=== PATIENT | male | born 1945 | race Caucasian/White ===

== ENCOUNTER 2020-02-19 16:19 | Emergency (ER) | payer MEDICARE, MEDICAID ==
[~2020-02-19] VITALS: Ht 134 cm; Wt 72.5 kg
[~2020-02-19 16:19] MED LIST: AC500T; DCS100C; LNS30CCR; LVT.088T
[2020-02-19] MEDS ORDERED: L.E.T. SOLUTION 3 ML SYR TOP ONE (17:00)
[2020-02-19] MEDS ORDERED: TETANUS,DIPTH,PERTUSS P/F (BOOSTRIX) 0.5 ML VIAL IM ONE (17:00)
--- NOTE | 2020-02-19 17:25 | ED Head Injury ---
General Chief Complaint: Laceration Stated Complaint: HEAD INJ/LACERATION Nursing Triage Note: PT ARRIVES TO ER WITH C/O HEAD LAC FROM A FALL AROUND 1500 TODAY. PT FELL IN BATHROOM AND HIT THE TUB. PT HAS A [employer] WORKER WITH HIM SHE WAS AT HIS HOUSE WHEN IT HAPPENED. SHE STATES NO LOSS OF CONSCIOUSNESS AND NOT SEEMING TO BE IN PAIN ACCORDING TO HER Source: patient Exam Limitations: no limitations History of Present Illness Date Seen by Provider: Feb 19, 2020 Time Seen by Provider: 17:22 Initial Comments To ER with a scalp laceration this gentleman is nonverbal from [facility]. He fell. No loss of consciousness. Occurred: just prior to arrival Severity: moderate Location: parietal Method of Injury: fell Loss of Consciousness: no loss of consciousness Allergies and Home Medications Allergies Coded Allergies: No Known Drug Allergies (Verified , 10/28/06) Patient Home Medication List Home Medication List Reviewed: Yes Review of Systems Review of Systems Constitutional: see HPI Eyes: No Symptoms Reported Ears, Nose, Mouth, Throat: no symptoms reported Respiratory: no symptoms reported Cardiovascular: no symptoms reported Genitourinary: no symptoms reported Musculoskeletal: no symptoms reported Skin: no symptoms reported Psychiatric/Neurological: No Symptoms Reported Endocrine: No Symptoms Reported Hematologic/Lymphatic: No Symptoms Reported Past Hzxhhey-Duqtkp-Gjowyk Hx Patient Social History Alcohol Use: Denies Use Recreational Drug Use: No 2nd Hand Smoke Exposure: No Recent Foreign Travel: No Contact w/Someone Who Travel: No Recent Infectious Disease Expo: No Recent Hopitalizations: No Immunizations Up To Date Tetanus Booster (TDap): Unknown PED Vaccines UTD: Yes Date of Pneumonia Vaccine: Dec 20, 2011 Date of Influenza Vaccine: Dec 19, 2018 Past Medical History Surgeries: No Respiratory: No Cardiac: No Neurological: No Reproductive Disorders: No Gastrointestinal: Yes Musculoskeletal: Yes (ABD HERNIA AT WAIST LINE (CAUSING NO CURRENT PROBLEMS)) Endocrine: Yes Psychosocial: No Integumentary: No Blood Disorders: No Physical Exam Vital Signs Vital Signs - First Documented 02/19/20 16:26 Temp 36.9 Pulse 110 B/P (MAP) 136/81 (99) Pulse Ox 96 O2 Delivery Room Air Capillary Refill : Less Than 3 Seconds Height, Weight, BMI Height: '" Weight: lbs. oz. kg; 40.00 BMI Method: General Appearance: WD/WN, no apparent distress HEENT: other (2 cm laceration to the left side of the parietal scalp depth to subcutaneous tissue.) Neck: non-tender, full range of motion Respiratory: no respiratory distress, no accessory muscle use Gastrointestinal: normal bowel sounds, non tender Extremities: normal range of motion, non-tender Psychiatric: alert, oriented x 3 Crainal Nerves: normal hearing, normal speech, PERRL Skin: normal color, warm/dry Progress/Results/Core Measures Results/Orders My Orders Orders - NORBERTO ACUNA APRN Ct Head/Cervical Spine Wo (02/19/20 17:00) Dipht,Pertuss(Acell),Tet Adult (Boostrix (02/19/20 17:00) Let Solution (Let Solution) (02/19/20 17:00) Medications Given in ED Current Medications Medications Dose Ordered Sig/Kalani Route Start Time Stop Time Status Last Admin Dose Admin Diphtheria/ Tetanus/Acell Pertussis 0.5 ml ONCE ONCE IM 02/19/20 17:00 02/19/20 17:01 DC 02/19/20 17:10 0.5 ML Tetracaine/ Epinephrine/ Lidocaine 3 ml ONCE ONCE TOP 02/19/20 17:00 02/19/20 17:01 DC 02/19/20 17:06 3 ML Vital Signs/I&O 02/19/20 16:26 Temp 36.9 Pulse 110 B/P (MAP) 136/81 (99) Pulse Ox 96 O2 Delivery Room Air Blood Pressure Mean: 99 Departure Impression Primary Impression: Scalp laceration Disposition: 01 HOME, SELF-CARE Condition: Stable Departure-Patient Inst. Decision time for Depature: 17:26 Referrals: RICARDO SÁNCHEZ DO (PCP/Family) Primary Care Physician Patient Instructions: Laceration Repair With [place] (DC) Add. Discharge Instructions: 1. He can shower letting water run over this starting tonight. Return to ER for any concerns such as vomiting severe headache or anything else that concerns you. Follow-up with his doctor next week. The barbara should be removed in about 5 to 6 days. You can return to the emergency room to have this done. All discharge instructions reviewed with patient and/or family. Voiced understanding. NORBERTO ACUNA APRN Feb 19, 2020 17:25
--- NOTE | 2020-02-19 19:28 | Diagnostic Imaging Report ---
EXAMINATION: CT head and CT cervical spine without contrast. TECHNIQUE: Multiple contiguous axial images were obtained through the brain and cervical spine without the use of intravenous contrast. Sagittal and coronal reformations through the cervical spine were then performed. All CT scans use one or more of the following dose optimizing techniques: automated exposure control, MA and/or KvP adjustment based on a patient size and exam type, or iterative reconstruction. HISTORY: Fall onto head with pain. COMPARISON: None available. FINDINGS: HEAD: Mild diffuse cerebral volume loss with proportional enlargement of the ventricles and sulci. Mild hypodensities throughout the supratentorial white matter of both cerebral hemispheres. 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 No acute intracranial hemorrhage or abnormal extra-axial fluid collections are present. No hyperdense vessel. Soft tissue swelling overlying the left superior scalp. The calvarium is intact. The mastoid air cells are clear. The visualized paranasal sinuses are clear. The orbits are normal. C-SPINE: Vertebral body height and alignment are preserved. Multilevel cervical spondylosis. No acute fracture, dislocation, or destructive osseous process. Multilevel facet hypertrophy. No greater than mild central canal or neuroforaminal stenosis at any level. The paraspinous soft tissues are normal. The visualized thyroid gland is normal. The visualized lung apices are normal. IMPRESSION: 1. No acute intracranial abnormality. 2. Degenerative changes of the cervical spine without acute osseous abnormality. 3. Chronic senescent changes. Dictated by: Dictated on workstation # [id number]
[2020-02-19 19:30] VITALS: BP 136/81
== END 2020-02-19 19:32 | disposition home or self-care (01) ==
LOC: EDUNIT# 16:19 → ER 16:21
DX: S01.01XA Laceration without foreign body of scalp, initial encounter (principal); Z23 Encounter for immunization; W19.XXXA Unspecified fall, initial encounter
CPT/HCPCS: 70450; 72125; 90715

== ENCOUNTER 2021-06-25 05:44 | Outpatient (CLI) | payer MEDICARE, MEDICAID ==
[~2021-06-25] VITALS: Ht 160 cm; Wt 70.0 kg
[2021-06-26] MEDS ORDERED: LEVO100C4 PO (09:59)
[2021-06-26] MEDS ORDERED: DOCU-143 PO (09:59)
[2021-06-26] MEDS ORDERED: POLY119P5 PO (09:59)
== END 2021-06-26 10:15 | disposition home or self-care (01) ==
LOC: PREOP 05:44
PROVIDERS: ATTEND Surgery
DX: Z01.818 Encounter for other preprocedural examination (principal)

== ENCOUNTER 2021-07-02 06:21 | Day surgery (SDC) | payer MEDICARE, MEDICAID ==
[~2021-07-02] VITALS: Ht 160 cm; Wt 70.0 kg
[2021-07-02] VITALS (7 sets, daily range): BP systolic 116–149; BP diastolic 64–85
[~2021-07-02 06:21] MED LIST changes: +DOCU-143 PO; +LEVO100C4 PO; +POLY119P5 PO
[2021-07-02] MEDS ORDERED: LACTATED RINGERS 1,000 ML IV PRN (06:30)
[2021-07-02] MEDS ORDERED: ceFAZolin INJECTION 1,000 MG VIAL IV ONE (06:30)
[2021-07-02] MEDS ORDERED: LIDOCAINE/EPI 2% 1:100,00 (XYLOCAINE) 20 ML VIAL ONE (07:02)
[2021-07-02] MEDS ORDERED: ONDANSETRON 4 MG/2 ML (SDV) Z0FRAN ONE (07:20)
[2021-07-02] MEDS ORDERED: proPOfol 200 MG/20 ML (DIPRIVAN) VIAL IV ONE (07:20)
[2021-07-02] MEDS ORDERED: fentaNYL INJ 100 MCG/2 ML AMP ONE (07:20)
[2021-07-02] MEDS ORDERED: LIDOCAINE PF 2% 5 ML (XYLOCAINE) VIAL ONE (07:20)
--- NOTE | 2021-07-02 07:54 | Progress Note-Pre Operative ---
Pre-Operative Progress Note H&P Reviewed The H&P was reviewed, patient examined and no changes noted. Date Seen by Provider: Jul 02, 2021 Time Seen by Provider: 07:46 Date H&P Reviewed: Jul 02, 2021 Time H&P Reviewed: 07:46 Pre-Operative Diagnosis: lesion right foot LISBETH BANUELOS DO Jul 02, 2021 07:54
[2021-07-02] MEDS ORDERED: SEVOFLURANE (ULTANE) 15 ML INHAL SOLN ONE (08:29)
--- NOTE | 2021-07-02 08:47 | Discharge Inst-Simple/Standard ---
Discharge Inst-Standard Patient Instructions/Follow Up Plan of Care/Instructions/FU: 12-14 days For suture removal Activity as Tolerated: Yes Discharge Diet: Regular Diet Other Inst to Patient Follow up Appt: Make appointment for 12-14 days for suture removal. Instructions: No lifting greater than 10 pounds. No strenuous activity. May shower in 24 hours, no tub bath or soaking. Use incentive spirometer at home as directed. No Smoking Skin/Wound Care: Keep area clean and dry. Change bandaid daily and as needed. Symptoms to Report: Appetite Changes, Extremity Discoloration, Numbness/Tingling, Swelling Increased, Bleeding Excessive, Eyesight Changes, Pain Increased, Urine Color Change, Constipation(Persistent), Fever over 101 degree F, Pain/Pressure in chest, Urinating Difficulty, Cough Up/Vomit Blood, Heart Beat Irreg/Pounding, Pain/Pressure in jaw, Vaginal Bleeding Increase, Cramps in feet or legs, Lightheadedness, Pain/Pressure in shoulder, Diarrhea(Persistent), Memory Changes Suddenly, Questions/Concerns, Weight gain consecutive days, Dizziness/Fainting, Nausea/Vomiting, Shortness of Breath, Weight gain over 2 pounds If questions or concerns contact your physician Or seek help at emergency department. LISBETH BANUELOS DO Jul 02, 2021 08:47
--- NOTE | 2021-07-02 08:50 | Progress Note-Post Operative ---
Post-Operative Progess Note Surgeon (s)/Certified Technician Specialist (s) Surgeon LISBETH BANUELOS DO Certified Technician Specialist: na Pre-Operative Diagnosis lesion right foot Post-Operative Diagnosis same Procedure & Operative Findings Date of Procedure 07/02/21 Procedure Performed/Findings excision right foot lesion 1.5x2.6cm Anesthesia Type general Estimated Blood Loss Estimated blood loss (mL): minimal Specimens/Packing Specimens Removed lesion right foot LISBETH BANUELOS DO Jul 02, 2021 08:50
[2021-07-02] MEDS ORDERED: ONDANSETRON 4 MG/2 ML (SDV) Z0FRAN IVP PRN (09:15)
--- NOTE | 2021-07-02 12:15 | Anesthesia-General Post-Op ---
General Patient Condition Mental Status/LOC: Same as Preop Cardiovascular: Satisfactory Nausea/Vomiting: Absent Respiratory: Satisfactory Pain: Controlled Complications: Absent Post Op Complications Complications None Follow Up Care/Instructions Patient Instructions None needed. Anesthesia/Patient Condition Patient Condition Patient was doing well this morning after the procedure, no complaints, stable vital signs, no apparent adverse anesthesia problems. MARTÍNEZ DUPREE DO Jul 02, 2021 12:15
--- NOTE | 2021-07-02 12:49 | OPERATIVE REPORT ---
DATE OF SERVICE: 07/02/2021 PREOPERATIVE DIAGNOSIS: Lesion, right foot. POSTOPERATIVE DIAGNOSIS: Lesion, right foot. PROCEDURE: Excision of right foot lesion 1.5 x 2.6 cm. SURGEON: Lisbeth Edmond DO ANESTHESIA: General. ESTIMATED BLOOD LOSS: Minimal. COMPLICATIONS: None. SPECIMEN: Lesion, right foot. INDICATIONS: The patient is a 76-year-old male with lesion on the right foot, which causes pain and discomfort. The patient's family guardian understands risks and benefits of procedure and wished to proceed. Consent was signed in the chart. DESCRIPTION OF PROCEDURE: The patient was taken to the operating suite. He was prepped and draped in sterile fashion. Timeout was performed. Local anesthetic was infiltrated around the lesion. An elliptical incision measuring 1.5 x 2.6 cm was made. Skin and subcutaneous tissue were removed. Skin was then closed using 3-0 nylon in simple interrupted fashion. Area was washed and dried and sterile bandage was applied. The patient tolerated the procedure well without any complications, taken to recovery room in stable condition. Job ID: [id number] DocumentID: [id number] Dictated Date: 07/02/2021 08:50:05 Front Line Supervisor Date: 07/02/2021 12:48:44 Dictated By: LISBETH EDMOND DO
== END 2021-07-02 10:00 | disposition home or self-care (01) ==
LOC: SDC 06:21
PROVIDERS: ATTEND Surgery
DX: D36.13 Benign neoplasm of peripheral nerves and autonomic nervous system of lower limb, including hip (principal)
CPT/HCPCS: 87081; 88305

== ENCOUNTER → 2022-06-28 | Outpatient (CLI) | payer MEDICARE, MEDICAID ==
[~2022-06-28] MED LIST changes: +HOLD METFORMIN - RECEIVED CONTRAST 20 ML VIAL IV SCH; +IOHEXOL 350 MG/ML 100 ML (OMNIPAQUE 350) VIAL IV ONE; +NS 100 ML (IVPB) BAG IV ONE
[2022-06-28 12:50] LABS: BASOPHILS # (AUTO) 0.1 10^3/uL (0.0-0.1); BASOPHILS % (AUTO) 0 % (0-10); EOSINOPHILS % (AUTO) 0 % (0-10); HEMATOCRIT 31 % (40-54); HEMOGLOBIN 10.3 g/dL (13.3-17.7); LYMPHOCYTES # (AUTO) 2.4 10^3/uL (1.0-4.0); LYMPHOCYTES % (AUTO) 14 % (12-44); MEAN CORPUSCULAR HEMOGLOBIN 30 pg (25-34); MEAN CORPUSCULAR HGB CONC 34 g/dL (32-36); MEAN CORPUSCULAR VOLUME 91 fL (80-99); MEAN PLATELET VOLUME 10.3 fL (9.0-12.2); MONOCYTES # (AUTO) 1.1 10^3/uL (0.0-1.0); MONOCYTES % (AUTO) 7 % (0-12); NEUTROPHILS # (AUTO) 13.2 10^3/uL (1.8-7.8); NEUTROPHILS % (AUTO) 78 % (42-75); PLATELET COUNT 311 10^3/uL (130-400); WHITE BLOOD COUNT 16.9 10^3/uL (4.3-11.0)
[2022-06-28 13:14] LABS: ALBUMIN 3.9 GM/DL (3.2-4.5); BILIRUBIN,TOTAL 0.4 MG/DL (0.1-1.0); CALCIUM 8.9 MG/DL (8.5-10.1); CREATININE SERUM 0.76 MG/DL (0.60-1.30); POTASSIUM 3.8 MMOL/L (3.6-5.0); TOTAL PROTEIN 6.6 GM/DL (6.4-8.2)
[2022-06-28 13:19] LABS: ANISOCYTOSIS SLIGHT; BAND NEUTROPHILS 0 %; BASOPHILS % (MANUAL) 1 %; EOSINOPHILS % (MANUAL) 0 %; LYMPHOCYTES % (MANUAL) 16 %; MONOCYTES % (MANUAL) 4 %; MYELOCYTES % 1 %; NEUTROPHILS % (MANUAL) 78 %
--- NOTE | 2022-06-28 13:54 | Diagnostic Imaging Report ---
EXAMINATION: CT abdomen and pelvis with intravenous contrast. TECHNIQUE: Multiple contiguous axial images were obtained through the abdomen and pelvis after the uneventful administration of intravenous contrast. All CT scans use one or more of the following dose optimizing techniques: Automated exposure control, MA and/or KvP adjustment based on patient size and exam type or iterative reconstruction. HISTORY: Elevated white blood cell count. Nausea and vomiting. Abdominal pain. COMPARISON: None available. FINDINGS: The heart is unremarkable. Subsegmental atelectasis is seen in the left lung base. A cyst is seen in the right hepatic lobe measuring 5.6 x 5.5 cm. Additional smaller cysts are seen in the liver. No enhancing hepatic lesions. The portal vein is patent. Gallstones are seen within a mildly distended gallbladder. No intra- or extra-hepatic biliary dilation. The spleen, pancreas, adrenal glands, and kidneys have a normal appearance. There is no pathologically enlarged mesenteric or retroperitoneal adenopathy. The bowel loops are nondilated. The appendix is visualized in the right lower quadrant and has a normal appearance. There is wall thickening of the rectosigmoid colon. No pericolonic inflammatory changes. There is no free fluid or free air. No acute osseous abnormalities. Ureters and bladder are grossly normal. Bilateral fat-containing inguinal hernias are seen. There is no free air, loculated collection, or adenopathy in the pelvis. IMPRESSION: 1. Wall thickening of the rectosigmoid colon, which may represent proctitis/colitis. No associated pericolonic inflammation. No bowel obstruction, free fluid, or free air. 2. Bilateral small fat-containing inguinal hernias. 3. Cholelithiasis. No intra- or extra-hepatic biliary dilation. Recommend correlation with symptoms and LFTs and if indicated liver/gallbladder ultrasound to further evaluate. 4. Numerous benign-appearing hepatic cysts. Dictated by: Dictated on workstation # [id number]
== END ==
LOC: RAD 12:35
PROVIDERS: ATTEND Family Medicine
DX: K63.9 Disease of intestine, unspecified (principal); K40.20 Bilateral inguinal hernia, without obstruction or gangrene, not specified as recurrent; K80.20 Calculus of gallbladder without cholecystitis without obstruction; K76.89 Other specified diseases of liver; D72.829 Elevated white blood cell count, unspecified
CPT/HCPCS: 36415; 74177; 80053; 82150; 83690; 85007; 85027

== ENCOUNTER 2022-07-01 05:41 | Outpatient (CLI) | payer MEDICARE, MEDICAID ==
[~2022-07-01] VITALS: Ht 157.5 cm; Wt 64.9 kg
[~2022-07-01 05:41] MED LIST changes: -HOLD METFORMIN - RECEIVED CONTRAST 20 ML VIAL IV SCH; -IOHEXOL 350 MG/ML 100 ML (OMNIPAQUE 350) VIAL IV ONE; -NS 100 ML (IVPB) BAG IV ONE
== END 2022-07-02 10:18 | disposition home or self-care (01) ==
LOC: PREOP 05:41
PROVIDERS: ATTEND Surgery
DX: Z01.818 Encounter for other preprocedural examination (principal)

== ENCOUNTER 2022-07-06 10:26 | Day surgery (SDC) | payer MEDICARE, MEDICAID ==
[~2022-07-06] VITALS: Ht 157.5 cm; Wt 64.9 kg
[2022-07-06] VITALS (9 sets, daily range): BP systolic 132–158; BP diastolic 63–82
[2022-07-06] MEDS ORDERED: LIDOCAINE/EPI 1%-1:100,000 (XYLOCAINE) 20ML ONE (10:43)
[2022-07-06] MEDS ORDERED: LIDOCAINE PF 2% 5 ML (XYLOCAINE) VIAL ONE (10:50)
[2022-07-06] MEDS ORDERED: SEVOFLURANE (ULTANE) 15 ML INHAL SOLN ONE ×2 (10:50→12:51)
[2022-07-06] MEDS ORDERED: ONDANSETRON 4 MG/2 ML (SDV) Z0FRAN ONE (10:50)
[2022-07-06] MEDS ORDERED: proPOfol 200 MG/20 ML (DIPRIVAN) VIAL IV ONE (10:50)
[2022-07-06] MEDS ORDERED: MIDAZOLAM 2 MG/2 ML (VERSED) VIAL ONE (10:50)
[2022-07-06] MEDS ORDERED: fentaNYL INJ 100 MCG/2 ML AMP ONE (10:50)
[2022-07-06] MEDS ORDERED: SUCCINYLCHOLINE INJ 20 MG/1 ML 10 ML VIAL ONE (10:51)
[2022-07-06] MEDS: LACTATED RINGERS 1,000 ML IV PRN ×2 (10:57→12:45)
[2022-07-06] MEDS ORDERED: ceFAZolin INJECTION 2,000 MG in NS (IVPB) 50 ML IV ONE (11:00)
--- NOTE | 2022-07-06 11:25 | Progress Note-Pre Operative ---
Pre-Operative Progress Note Date H&P Reviewed: Jul 06, 2022 Time H&P Reviewed: 11:21 History & Physical: H&P Reviewed, Patient Examed, No changes noted Pre-Operative Diagnosis: Cholelithiasis/Cholecystitis DILCIA HUBBARD DO Jul 06, 2022 11:25
[2022-07-06] MEDS ORDERED: PHENYLEPHRINE INJ 10 MG/ML (FOR PYXIS KITS ONLY) ONE (11:42)
[2022-07-06] MEDS ORDERED: PHENYLEPHRINE 100 MCG/ML 10 ML (ANESTHESIA) SYR ONE (11:42)
[2022-07-06] MEDS ORDERED: GLYCOPYRROLATE 0.2 MG/ML (ROBINUL) 2 ML VIAL ONE ×2 (11:53→12:34)
[2022-07-06] MEDS ORDERED: NEOSTIGMINE (BLOXIVERZ ) 1 MG/1ML 10 ML VIAL ONE (12:34)
[2022-07-06] MEDS ORDERED: KETOROLAC 30 MG/ML VIAL ONE (12:48)
[2022-07-06] MEDS ORDERED: ROCURONIUM 50 MG/5 ML (ZEMURON) VIAL IV ONE (12:48)
[2022-07-06] MEDS ORDERED: HYDROmorphone 2 MG/ML VIAL (DILAUDID) IV ONE (13:15)
[2022-07-06] MEDS ORDERED: ONDANSETRON 4 MG/2 ML (SDV) Z0FRAN IVP PRN (13:15)
--- NOTE | 2022-07-06 13:47 | Progress Note-Post Operative ---
Post-Operative Progess Note Surgeon (s)/Station Engineer (s) Surgeon DILCIA HUBBARD DO Station Engineer: KIMBERLI Philip Pre-Operative Diagnosis Cholelithiasis/Cholecystitis Post-Operative Diagnosis Cholecystitis possible CBD stricture Procedure & Operative Findings Date of Procedure 07/06/22 Procedure Performed/Findings PROCEDURE: Laparoscopic cholecystectomy with intraoperative cholangiogram. COMPLICATIONS: None. PROCEDURE: The patient was taken to the operating suite and was prepped and draped in sterile fashion. A surgical pause was performed. Just superior to the umbilicus, a 12 mm incision was made. Dissection was taken down to the fascia, which was then scored and grasped with a Joo and the abdomen was then entered. An 0 Vicryl suture was placed in a [id number] fashion and a Chávez trocar was placed and secured. Pneumoperitoneum was achieved. A 5mm trochar place in the subxyphoid and 2 in the right upper quadrant. Attempted to grab the gallbladder at the fundus but it ripped twice and spilled bile. Suctioned up most of the bile and there were also thick adhesions to the gallbladder. The adhesions were taken down with bovie and using the suction director career services. Finally able to hold the gallbladder around middle of it and then grasp at Santiago's pouch and pull laterally. The gallbladder was very friable and as I was getting around duct it ripped. I then used this hole to shoot the cholangiogram. An arrow catheter was inserted into the duct. The cholangiogram was then performed; no filling defects and contrast made its way into the duodenum. I shot two cholangiograms because I couldn't quited see everyting on the first one. The second one I placed a clip to hold catheter in place. It looked like there may have been a "scalloped" portion of duct, but no stones. Catheter removed and clips were placed on proximal and distal portion of the cystic duct and then the duct was then transected. Clips were placed along the proximal and distal portion of the cystic artery which was then transected. Hook cautery was used to dissect the gallbladder from the gallbladder fossa. It pulled off in a couple of areas and had to turn the bovie up to achieve hemostasis; no bleeding at end of case. The gallbladder was placed in an Endobag and removed through the 12 mm trocar site. The abdomen was then reinspected. Copious amounts of irrigation were used to irrigate the abdomen and there were no signs of active bleeding. Hemostasis had been achieved. The 12 mm fascial defect was then closed with 0 Vicryl suture that had been placed in a [id number] fashion. The abdomen was then desufflated, the trocars were removed. The abdomen was then washed and dried. The skin was then closed using 4-0 Monocryl in a subcuticular fashion. The abdomen was washed and dried and Skin Affix was place over incisions. Patient tolerated the procedure well without any complications and was taken to the recovery room in stable condition. Anesthesia Type GET Estimated Blood Loss Estimated blood loss (mL): less than 20ml Specimens/Packing Specimens Removed GB and contents DILCIA HUBBARD DO Jul 06, 2022 13:47
[2022-07-06] MEDS ORDERED: ACHD5005 PO (13:48)
--- NOTE | 2022-07-06 13:49 | Discharge Inst-Surgical ---
Discharge Inst-Surgical Depart Medication/Instructions New, Converted or Re-Newed RX: Transmitted to Pharmacy Patient Instructions Follow up Appt: Make appointment for 1 week. [phone] Instructions: No lifting greater than 20 pounds. No strenuous activity. May shower in 24 hours, no tub bath or soaking. Use incentive spirometer at home as directed. No Smoking Skin/Wound Care: May remove bandages in am. You need to leave the Dermabond on incision it will fall off on it's own. Symptoms to Report: Appetite Changes, Extremity Discoloration, Numbness/Tingling, Swelling Increased, Bleeding Excessive, Eyesight Changes, Pain Increased, Urine Color Change, Constipation(Persistent), Fever over 101 degree F, Pain/Pressure in chest, Urinating Difficulty, Cough Up/Vomit Blood, Heart Beat Irreg/Pounding, Pain/Pressure in jaw, Cramps in feet or legs, Lightheadedness, Pain/Pressure in shoulder, Diarrhea(Persistent), Memory Changes Suddenly, Questions/Concerns, Weight gain consecutive days, Dizziness/Fainting, Nausea/Vomiting, Shortness of Breath, Weight gain over 2 pounds If questions or concerns contact your physician Or seek help at emergency department. Activity Activity as Tolerated: Yes Activity Instructions: Avoid Pulling & Pushing, Avoid Stress to Incision Diet Discharge Diet: Avoid Fatty Foods, Low Fat/Low Cholesterol Diet After 24 Hours: Clear Liquid if Nauseous If Any Problems/Questions/Issu: Contact Your Physician, Go to Emergency Room Skin/Wound Care Infection Signs and Symptoms: Increased Redness, Foul Odor of Wound, Increased Drainage, Skin Itchy or Has a Rash, Increased Swelling, Temperature Above 101 F Wound Care Comment: heating pad to shoulder or neck for pain Bathing Instructions: Shower Stitches/Katherine/Dermabond Dis: Dermabond DILCIA HUBBARD DO Jul 06, 2022 13:49
[2022-07-06] MEDS ORDERED: HYDROcodone/APAP 5 MG/325 MG (LORTAB) TAB PO ONE (14:15)
--- NOTE | 2022-07-06 14:19 | Anesthesia-General Post-Op ---
General Patient Condition Mental Status/LOC: Same as Preop Cardiovascular: Satisfactory Nausea/Vomiting: Absent Respiratory: Satisfactory Pain: Controlled Complications: Absent Post Op Complications Complications None Follow Up Care/Instructions Patient Instructions None needed. Anesthesia/Patient Condition Patient Condition Patient is doing well, no complaints, stable vital signs, no apparent adverse anesthesia problems. No complications reported per nursing. D/C home per [facility] Criteria: Yes OMID POLLARD CRNA Jul 06, 2022 14:19
[2022-07-06] MEDS ORDERED: HYDROcodone/APAP 5 MG/325 MG (LORTAB) TAB ONE (14:20)
--- NOTE | 2022-07-06 15:03 | Diagnostic Imaging Report ---
INDICATION: Fluoroscopy for intraoperative cholangiogram. TECHNIQUE: Fluoroscopy was provided in the OR during intraoperative cholangiogram. 31 seconds of fluoroscopic time was utilized. 182 images were obtained. FINDINGS: Contrast is noted being injected via the cystic duct remnant. Intrahepatic and extrahepatic bile ducts are somewhat dilated. There is focal narrowing and irregularity involving the distal common duct. This does appear to be patent with contrast flowing into the duodenum. No definite filling defects are seen to suggest a retained stone. IMPRESSION: There does appear to be some irregular narrowing of the distal common duct, concerning for malignancy. ERCP with brushings should be considered. No other significant abnormality is seen. Dictated by: Dictated on workstation # [id number]
== END 2022-07-06 15:15 | disposition home or self-care (01) ==
LOC: SDC 10:26
PROVIDERS: ATTEND Surgery
DX: K80.12 Calculus of gallbladder with acute and chronic cholecystitis without obstruction (principal); K82.8 Other specified diseases of gallbladder; K52.9 Noninfective gastroenteritis and colitis, unspecified
CPT/HCPCS: 76000; 87081

== ENCOUNTER 2022-07-08 07:07 | Emergency (ER) | payer MEDICARE, MEDICAID ==
[~2022-07-08 07:07] MED LIST changes: +ACHD5005 PO
[2022-07-08] MEDS ORDERED: EPINEPHrine 0.1 MG/ML 10 ML (HOSPIRA) SYR IJ ONE (07:10)
--- NOTE | 2022-07-08 07:48 | ED General ---
General Stated Complaint: CODE Source of Information: EMS, Other (Nurse and rn case mgr) Exam Limitations: No Limitations History of Present Illness Date Seen by Provider: Jul 08, 2022 Time Seen by Provider: 07:09 Initial Comments Patient is a 77-year-old male with a history of developmental disability who lives in a detention and has his entire adult life, witnessed cardiac arrest at his detention this morning at approximately 6:32 AM. Immediate CPR. EMS response at 6:38 AM. PEA throughout resuscitative efforts with 3 epi's given. At the time of discontinuation of CPR per myself, medical control EMS reports that they discontinued and had a bounding femoral pulse. They called back to give report and transferred the patient. He arrived at 708. Palpable pulse present femoral artery. Bilateral equal breath sounds. As patient was being assessed it was noted at 10 01 the patient was pulseless, PEA. CPR again resumed. Patient noted to have i-gel airway in place. Oxygenation in the upper 70s. Patient is very pale unresponsive. Multiple rounds of epinephrine x4. Patient's blood sugar was 100. Pupils fixed at 3 to 4 mm equally. No obvious outward signs of trauma. After the third epinephrine, bedside ultrasound was used to access cardiac contractility. He had some movement therefore another round of epi was given and CPR continued. After the appropriate amount of time bedside ultrasound was again used to assess cardiac function. It appeared to me that the patient had a decrease in overall contractility, no palpable pulse. As it had been almost an hour since downtime CPR was discontinued. Patient had had a laparscopic cholecystectomy 2 days prior. Care worker/rn case mgr stated he had been having alot of pain in his knees yesterday. He had been suffering with stomach upset about 2 weeks prior to henry. PMH includes his developmental disability and low thyroid along with chronic constipation. Non verbal. Notification was made to the patient's rn case mgr as well as his nurse both of whom had been with him for approximately 10 years. Timing/Duration: 1 Hour Allergies and Home Medications Allergies Coded Allergies: No Known Drug Allergies (Verified , 10/28/06) Patient Home Medication List Home Medication List Reviewed: Yes Docusate Sodium (Colace) 100 Mg Capsule, 100 MG PO BID, (Reported) Entered as Reported by: JOSEPH LYLES on 06/26/21 0959 Hydrocodone/Acetaminophen (Hydrocodone-Acetamin 5-325 mg) 5 Mg-325 Mg Tablet, 1 TAB PO Q8H PRN for PAIN-MODERATE (5-7) Prescribed by: DILCIA HUBBARD on 07/06/22 1349 Levothyroxine Sodium (Levothyroxine) 100 Mcg Capsule, 100 MCG PO DAILY, (Reported) Entered as Reported by: JOSEPH LYLES on 06/26/21 0959 Polyethylene Glycol 3350 (Miralax) 119 Gm Powder, 119 GM PO HS, (Reported) Entered as Reported by: JOSEPH LYLES on 06/26/21 0959 Review of Systems Review of Systems Constitutional: see HPI unable to obtain due to unresponsive state Past Ohbjnva-Yfxolz-Nfohri Hx Immunizations Up To Date Tetanus Booster (TDap): Unknown PED Vaccines UTD: Yes First/Initial COVID19 Vaccinat: 2020 Second COVID19 Vaccination Nathanael: 2020 Third COVID19 Vaccination Date: 2020 Seasonal Allergies Seasonal Allergies: No Past Medical History Surgeries: Yes (mole removal left foot) Respiratory: No Currently Using CPAP: No Currently Using BIPAP: No Cardiac: No Neurological: No Reproductive Disorders: No Genitourinary: No Gastrointestinal: Yes Gastroesophageal Reflux, Chronic Constipation Musculoskeletal: Yes (ABD HERNIA AT WAIST LINE (CAUSING NO CURRENT PROBLEMS)) Endocrine: Yes HEENT: Yes (GLASSES - PT IS NON VERBAL) Cancer: No 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 oz. kg; 26.16 BMI Method: General Appearance: Thin, Other (unresponsive) Eyes: Bilateral Eye Normal Inspection, Bilateral Eye Other (pupils 3mm bilaterally) Neck: Normal Inspection Respiratory: Other (bilateral BS auscultated with Bagged ventilations through Igel tube) Cardiovascular: Other (initially bounding femoral pulse; shortly after arrival pulse was absent) Gastrointestinal: Soft, Other (soft, distended; healing post surgical wounds anterior abd, consistent with recent GB surgery) Extremity: Normal Inspection Neurologic/Psychiatric: Other (unresponsive) Skin: Warm/Dry, Pallor (extreme pallor) Progress/Results/Core Measures Suspected Sepsis SIRS Temperature: Pulse: Respiratory Rate: Blood Pressure / Mean: Results/Orders Vital Signs/I&O Capillary Refill : Departure Impression Primary Impression: Cardiac arrest Disposition: 20 Condition: Departure-Patient Inst. Referrals: RICARDO SÁNCHEZ DO (PCP/Family) Primary Care Physician Copy Copies To 1: RICARDO SÁNCHEZ KATHRYN M MD Jul 08, 2022 07:48
== END 2022-07-08 16:10 | disposition expired ==
LOC: EDUNIT# 07:07 → ER 07:09
DX: I46.9 Cardiac arrest, cause unspecified (principal)
CPT/HCPCS: 99283